=== PATIENT | female | born 1985 | race Asian ===

== ENCOUNTER 2018-12-10 07:24 | Inpatient (IN) | payer OTHER ==
[2018-12-10] MEDS ORDERED: IBUPROFEN 600 MG TAB PO PRN (11:24)
[2018-12-10] MEDS ORDERED: OLIVE OIL 118 ML BTL MISC PRN (11:24)
[2018-12-10] MEDS ORDERED: EPSOM SALT 454 GM TP PRN (11:24)
[2018-12-10] MEDS ORDERED: OXYTOCIN/RINGERS LACTATE 1,000 ML IV PRN (11:24)
[2018-12-10] MEDS ORDERED: LR 1,000 ML IV PRN (11:24)
[2018-12-10] MEDS ORDERED: LIDOCAINE 1% 300 MG/30 ML SDV SC PRN (11:24)
[2018-12-10] MEDS ORDERED: MISOPROSTOL 200 MCG TAB PR PRN (11:24)
--- NOTE | 2018-12-10 11:24 | GHP ---
[f rep st] PREOP HISTORY AND PHYSICAL DATE OF ADMISSION: 12/10/2018 ADMITTING DIAGNOSIS: Intrauterine at 39 and 0/7 weeks' gestation in early active labor. HISTORY OF PRESENT ILLNESS: The patient is a 33-year-old, 1, para 0, with a last menstrual p eriod of 03/11/2018, and an EDC of 12/17/2018, which was confirmed by an early ultrasound in [place]. She presented with active labor contractions starting at approximately 9 p.m. on the evening of the , progressed in intensity and frequency over the course of the evening. She presented in the sai y morning of the . Initial cervical exam was 2 cm, 50%, and -3, cephalic. The patient has been walking and was rechecked 2 hours after her initial exam and her exam now is 3 cm, 80%, -2. The niraj ent's contractions are active but still somewhat irregular every 3-6 minutes, mild to moderate intens ity. The patient is exhausted and wishes to have an epidural for rest and is open to augmentation of labor if needed. So I offered her expected management with more walking to develop a more active la bor pattern versus active management with an epidural, possible AROM and Pitocin. Patient is open to these interventions and she wishes to have her epidural as soon as possible. The patient has no pas t obstetrical history, this is her first . PAST GYNECOLOGICAL HISTORY: She had menarche at age 13, interval every 28 days. Length 4 days, shor t and regular, last menstrual period of 03/10/2018. She transferred to [facility] at 37+ w eeks' gestation and had her actual new OB visit yesterday, on the . Her records were in [place], but she has had no significant risk factors, normal ultrasounds in this , normal 1 hour GTT, and normal labs that we know of. Her blood type is B positive. Triple screen was low ris k. Hemoglobin and hematocrit were 11.3 and 34, GTT was normal. Hemoglobin A1c was 4.2. Other labs were not listed, they will be drawn today on admission. GBS was performed yesterday but is pending. Because she is 39 weeks with good dates and not ruptured, we will treat her by risk based protocol a nd avoid antibiotics at this point. The patient has no past medical history or past surgical history . SOCIAL HISTORY: She is . She lives with her , Ankit Trinidad. He is a labor economics professor at in chemistry and they just moved to [place] 1 week ago. She denies tobacco, alcohol, and drug us e. FAMILY HISTORY: Maternal grandfather has Alzheimer and lung cancer and that is all. PHYSICAL EXAMINATION: VITAL SIGNS: She is afebrile. Vital signs are stable. heart tones are 140s, reactive moderate variability, category 1. She is anabella every 3-6 minutes. Cervix agai n is 3, 80%, -2, cephalic and intact. ASSESSMENT/PLAN: 33-year-old, 1, para 0, at 39 and 0/7 weeks' gestation in early active labo r. The patient desires an epidural for pain control. She desires to rest and she is open for interv entions for augmentation of labor if needed. /[id number]/MODL
[2018-12-10 11:47] LABS: PLATELET COUNT 173 10^3/uL (150-400)
[2018-12-10] MEDS ORDERED: PHENYLEPHRINE HCL 100 MCG/ML SYR ONE (11:55)
[2018-12-10] MEDS ORDERED: fentaNYL 2MCG/ML/BUP 0.1% RTU 100 ML BAG EP ONE (11:55)
[2018-12-10] MEDS ORDERED: BUPIVACAINE 0.25% 10 ML SDV ONE (11:55)
[2018-12-10] MEDS ORDERED: LIDOCAINE 1% 300 MG/30 ML SDV ONE (12:33)
[2018-12-10] MEDS ORDERED: TERBUTALINE SULFATE 1 MG/ML VIAL ONE (12:34)
[2018-12-10] MEDS ORDERED: OXYTOCIN 10 UNIT/ML VIAL ONE (12:34)
[2018-12-10] MEDS ORDERED: OLIVE OIL 118 ML BTL ONE (12:34)
[2018-12-10] MEDS ORDERED: AMMONIA AROMATIC 1 EACH AMP IH ONE (12:34)
[2018-12-10] MEDS ORDERED: MISOPROSTOL 200 MCG TAB ONE (12:35)
[2018-12-10] MEDS ORDERED: ONDANSETRON 4 MG/2 ML VIAL IVP PRN (13:06)
[2018-12-10] MEDS ORDERED: PHENYLEPHRINE HCL 100 MCG/ML SYR IVP PRN (13:06)
[2018-12-10] MEDS ORDERED: NALOXONE HCL 0.4 MG/ML INJ IVP PRN (13:06)
--- NOTE | 2018-12-10 13:10 | PREANESOB ---
Obstetric Pre-Anesthesia Info - General Info Proposed Procedure: CHANTELL : 1 Para: 0 SISI: 12/17/18 Gestational Age: 39 week(s) and 0 day(s) - Info Status: Full Term FHR Pattern: Reassuring Anesthesia ROS: neg Allergies/Adverse Reactions: Allergy/AdvReac Type Severity Reaction Status Date / Time No Known Allergies Allergy Unverified 12/10/18 10:23 Visit Medications: Generic Name Dose Route Start Last Admin Trade Name Freq PRN Reason Stop Dose Admin Diphenhydramine HCl 25 - 50 mg 12/10/18 13:06 Benadryl Injection IVP 06/08/19 13:05 Q6HRS PRN Itching Lactated Ringer's 1,000 mls @ 0 mls/hr 12/10/18 11:24 12/10/18 11:30 Lr IV 12/11/18 11:23 1,000 mls PRN PRN Administration SEE PROTOCOL CONDITIONS Protocol Per Protocol Oxytocin/Lactated Ringer's 1,000 mls @ 125 mls/hr 12/10/18 11:24 Pitocin 20 Units/Lr (Premix) IV PRN PRN Post bleeding Fentanyl/Bupivacaine HCl 100 mls @ 0 mls/hr 12/10/18 13:30 Fentanyl/Bupivacaine/Ns 2 Mcg/Ml 0.1% (Premix EP 12/20/18 13:29 CONT WOOD Protocol As Directed Lactated Ringer's 500 mls @ 0 mls/hr 12/10/18 13:30 Lr IV 06/08/19 13:29 CONT WOOD As Directed Ibuprofen 600 mg 12/10/18 11:24 Motrin PO ONCE PRN post , pain Lidocaine HCl 300 mg 12/10/18 11:24 Lidocaine Hcl 1% SC 06/08/19 11:23 ONCE PRN episiotomy Magnesium Sulfate 454 gm 12/10/18 11:24 Epsom Salt TP 06/08/19 11:23 Q1H PRN perineal discomfort Misoprostol 800 - 1,000 mcg 12/10/18 11:24 Cytotec [place] ONCE PRN Vaginal Atony/Bleeding Harlan Oil 118 ml 12/10/18 11:24 Sweet Oil MISC 06/08/19 11:23 ONCE PRN perineal massage Discontinued Medications Generic Name Dose Route Start Last Admin Trade Name Freq PRN Reason Stop Dose Admin Ammonia (Aromatic Spirit) Confirm 12/10/18 12:34 Ammonia Aromatic Administered 12/10/18 12:35 Dose 1 each IH .STK-MED ONE Bupivacaine HCl Confirm 12/10/18 11:55 Sensorcaine 0.25% Sdv Administered 12/10/18 11:56 Dose 10 ml .ROUTE .STK-MED ONE Fentanyl/Bupivacaine HCl Confirm 12/10/18 11:55 Fentanyl/Bupivacaine/Ns 2 Mcg/Ml 0.1% (Premix Administered 12/10/18 11:56 Dose 100 ml EP .STK-MED ONE Lidocaine HCl Confirm 12/10/18 12:33 Lidocaine Hcl 1% Administered 12/10/18 12:34 Dose 300 mg .ROUTE .STK-MED ONE Misoprostol Confirm 12/10/18 12:35 Cytotec Administered 12/10/18 12:36 Dose 1,000 mcg .ROUTE .STK-MED ONE Harlan Oil Confirm 12/10/18 12:34 Sweet Oil Administered 12/10/18 12:35 Dose 118 ml .ROUTE .STK-MED ONE Oxytocin Confirm 12/10/18 12:34 Pitocin Administered 12/10/18 12:35 Dose 40 unit .ROUTE .STK-MED ONE Phenylephrine HCl Confirm 12/10/18 11:55 Neosynephrine Administered 12/10/18 11:56 Dose 1,000 mcg .ROUTE .STK-MED ONE Terbutaline Sulfate Confirm 12/10/18 12:34 Brethine Administered 12/10/18 12:35 Dose 1 mg .ROUTE .STK-MED ONE - Anesthesia History Response to Local Anesthetics: Normal Anesthesia & Operative History: No Prior Problems - Social History Substance Use/Abuse: Denies - Vital Signs Height/Weight (Nursing): Height 160 cm Weight 61.235 kg - Focused Exam Neck exam: FROM Mallampati Score: Class 2 Mouth exam: normal dental/mouth exam Pulmonary: no respiratory distress, clear to auscultation Cardiovascular: regular rate and rhythym Labs: 12/10/18 11:15 Patient ABO/Rh B POSITIVE 12/10/18 11:15 - Plan Consent Signed and on Chart: Yes Patient/Guardian Understands and Agrees to Plan: Yes Urgent/Emergent Case: Matilda goins completed preop but documented later for safe timely pt care General Comments: pt consented via quality improvement coordinator (rn) pt understands and wishes to proceed. Freddy
[2018-12-10] MEDS ORDERED: fentaNYL 2MCG/ML/BUP 0.1% RTU 100 ML EP SCH (13:30)
[2018-12-10] MEDS ORDERED: LR 500 ML IV SCH (13:30)
--- NOTE | 2018-12-10 13:59 | OBPROG ---
Labor Progress Note Assessment/Plan: Assessment: 33 y/o @ 39 0/7 weeks in early labor. Plan: Thick meconium with AROM now. I used the science interpreter to explain the significance of the meconium, the protocol for NRP if needed and dictated by how the baby behaves at . We have notified the PEARL DIGGER, who will be present for delivery. I emphasized that this does not signify signs of distress, and that the baby overall is very reassuring and has a Category I tracing. I answered all questions and they verbalized understanding through the science interpreter and directly to me. Good cervical progress, will recheck 2 hours. 12/10/18 13:59 Subjective/Intrapartum Course: 12/10/18 13:56 Pt is comfortable with her epidural. She has rested comfortably since placement. Objective: 12/10/18 11:15 Patient ABO/Rh B POSITIVE 12/10/18 11:15 - SVE Dilation (cm): 4 Effacement (%): 80 Station: -2 Membranes: AROM Amniotic Fluid Color: Thick Meconium - Contraction Pattern Assessment Current Contraction Pattern: Regular (Q 3-5) - FHR Assessment Dominguez FHR (bpm): 140 FHR Pattern Variability: Moderate FHR Category: 1 - Procedures Non-surgical Procedures: Amniotomy - AP Antepartum Course: 12/10/18 13:59 Late transfer of care from [place] @ 37 4/7 weeks GBS unknown Oxytocin Orders Assessment - Pre-Induction/Augmentation Assessment Gestational Age: 39 week(s) and 0 day(s) ICD10 Worksheet Patient Problems: Problems Problem Status Onset Normal labor Acute - ICD10 Problem Qualifiers (1) Normal labor
[2018-12-10] MEDS ORDERED: AMPICILLIN SODIUM 2 GM in NS 100 ML IV ONE (15:24)
[2018-12-10] MEDS ORDERED: ACETAMINOPHEN 500 MG TAB PO ONE (15:45)
[2018-12-10] MEDS: GENTAMICIN 80 MG/NACL 100 ML IV SCH ×2 (15:48→23:40)
--- NOTE | 2018-12-10 16:25 | OBPROG ---
Labor Progress Note Assessment/Plan: Assessment: 33 y/o @ 39 0/7 weeks in early labor. Maternal temperature in labor Plan: T max 100.5 in labor. We started Ampicillin and Gentamycin and gave PO Tylenol. Fever is down now. GBS culture returned as negative from yesterday. She is anabella regularly on her own and status is reassuring, with good cervical progress. Will re check 2 hours. 12/10/18 13:59 12/10/18 16:23 Subjective/Intrapartum Course: 12/10/18 13:56 Pt is comfortable with her epidural. She has rested comfortably since placement. 12/10/18 16:23 Pt is comfortable, she reports feeling weak and tired. Her fever is down now. Objective: 12/10/18 11:15 Patient ABO/Rh B POSITIVE 12/10/18 11:15 - SVE Dilation (cm): 6 Effacement (%): 90 Station: 0 Membranes: AROM Amniotic Fluid Color: Thick Meconium - Contraction Pattern Assessment Current Contraction Pattern: Regular (Q 3-5) - Procedures Non-surgical Procedures: Amniotomy - AP Antepartum Course: 12/10/18 13:59 Late transfer of care from [place] @ 37 4/7 weeks GBS unknown Oxytocin Orders Assessment - Pre-Induction/Augmentation Assessment Gestational Age: 39 week(s) and 0 day(s) ICD10 Worksheet Patient Problems: Problems Problem Status Onset Normal labor Acute - ICD10 Problem Qualifiers (1) Normal labor
[2018-12-10] MEDS ORDERED: LR 500 ML IV PRN (19:18)
--- NOTE | 2018-12-10 19:18 | OBPROG ---
Labor Progress Note Assessment/Plan: Assessment: 33 y/o @ 39 0/7 weeks in early labor. Maternal temperature in labor Plan: Pt is stable now, afebrile on Amp and Gent. She is having good contractions and good cervical change. Will re check 2 hours, will augment contractions with pitocin if needed. 12/10/18 13:59 12/10/18 16:23 12/10/18 19:14 Subjective/Intrapartum Course: 12/10/18 13:56 Pt is comfortable with her epidural. She has rested comfortably since placement. 12/10/18 16:23 Pt is comfortable, she reports feeling weak and tired. Her fever is down now. 12/10/18 19:11 Pt is comfortable with her epidural. She reports some nausea and acid reflux, but declines meds now. Objective: 12/10/18 11:15 Patient ABO/Rh B POSITIVE 12/10/18 11:15 - SVE Dilation (cm): 8 Effacement (%): 90 Station: 0 Membranes: AROM Amniotic Fluid Color: Thick Meconium - Contraction Pattern Assessment Current Contraction Pattern: Regular (Q 2-3) - FHR Assessment Dominguez FHR (bpm): 140 FHR Pattern Variability: Moderate FHR Category: 1 - Procedures Non-surgical Procedures: Amniotomy - AP Antepartum Course: 12/10/18 13:59 Late transfer of care from [facility] @ 37 4/7 weeks GBS unknown Oxytocin Orders Assessment - Pre-Induction/Augmentation Assessment Gestational Age: 39 week(s) and 0 day(s) ICD10 Worksheet Patient Problems: Problems Problem Status Onset Normal labor Acute - ICD10 Problem Qualifiers (1) Normal labor
[2018-12-10] MEDS ORDERED: OXYTOCIN/RINGERS LACTATE 500 ML IV SCH (19:30)
[2018-12-10] MEDS: AMPICILLIN SODIUM 1 GM in NS 100 ML IV SCH (20:41)
[2018-12-10] MEDS: ACETAMINOPHEN 500 MG TAB PO PRN (21:50)
--- NOTE | 2018-12-10 22:10 | OBPROG ---
Labor Progress Note Assessment/Plan: Assessment: 33 y/o @ 39 0/7 weeks in early labor. Maternal temperature in labor Plan: Pt has developed tachycardia and baby's baseline has increased to the 160-170. Her last temperature was 101.3. She just received her 2nd dose of Tylenol. We will let her rest for 30 minutes and then try pushing again. She had good pushing efforts, but I could still palpate an anterior cervical lip. She can push the head past it. I suspect OP presentation. Overall status is reassuring and she has made good progress. I notified [facility] of Chorioamnionitis and she will assess the baby at delivery. 12/10/18 13:59 12/10/18 16:23 12/10/18 19:14 12/10/18 22:10 Subjective/Intrapartum Course: 12/10/18 13:56 Pt is comfortable with her epidural. She has rested comfortably since placement. 12/10/18 16:23 Pt is comfortable, she reports feeling weak and tired. Her fever is down now. 12/10/18 19:11 Pt is comfortable with her epidural. She reports some nausea and acid reflux, but declines meds now. 12/10/18 22:07 Pt is feeling pelvic pressure and the urge to have a BM. We tried to push for approximately 30 minutes. She has good effort, but is feeling very fatigued. We decided to rest for 30 minutes and then try again. Objective: 12/10/18 11:15 Patient ABO/Rh B POSITIVE 12/10/18 11:15 - SVE Dilation (cm): 10 Effacement (%): 100 Station: +2 Membranes: AROM Amniotic Fluid Color: Thick Meconium - Contraction Pattern Assessment Current Contraction Pattern: Regular (Q 2-3) - FHR Assessment Dominguez FHR (bpm): 160 FHR Pattern Variability: Moderate FHR Category: 1 - Procedures Non-surgical Procedures: Amniotomy - AP Antepartum Course: 12/10/18 13:59 Late transfer of care from [place] @ 37 4/7 weeks GBS unknown Oxytocin Orders Assessment - Pre-Induction/Augmentation Assessment Gestational Age: 39 week(s) and 0 day(s) ICD10 Worksheet Patient Problems: Problems Problem Status Onset Normal labor Acute - ICD10 Problem Qualifiers (1) Normal labor
[2018-12-11] MEDS ORDERED: SIMETHICONE 80 MG TAB CHEW PO PRN (00:27)
[2018-12-11] MEDS ORDERED: oxyCODONE IR 5 MG TAB PO PRN (00:27)
[2018-12-11] MEDS ORDERED: ACETAMINOPHEN 325 MG TAB PO PRN (00:27)
[2018-12-11] MEDS ORDERED: HYDROCORTISONE 0.5% CREAM TP PRN (00:27)
--- NOTE | 2018-12-11 00:34 | OBDEL ---
Info Type: Vaginal Presentation at Delivery: Vertex L&D Analgesia/Anesthesia Type: Epidural GBS+: No Intrapartum Medications: Generic Name Dose Route Start Last Admin Trade Name Evelyn PRN Reason Stop Dose Admin Acetaminophen 1,000 mg 12/10/18 21:36 12/10/18 21:50 Tylenol PO 06/08/19 21:35 1,000 mg Q6HRS PRN Administration Pain, Mild/Fever, Can Take PO Lactated Ringer's 1,000 mls @ 0 mls/hr 12/10/18 11:24 12/10/18 11:30 Lr IV 12/11/18 11:23 1,000 mls PRN PRN Administration SEE PROTOCOL CONDITIONS Protocol Per Protocol Fentanyl/Bupivacaine HCl 100 mls @ 0 mls/hr 12/10/18 13:30 12/10/18 19:22 Fentanyl/Bupivacaine/Ns 2 Mcg/Ml 0.1% (Premix EP 12/20/18 13:29 100 mls CONT WOOD Administration Protocol As Directed Ampicillin Sodium 1 gm/ Sodium 100 mls @ 200 mls/hr 12/10/18 19:30 12/10/18 20:41 Chloride IV 01/09/19 19:29 100 mls Q4H WOOD Administration Protocol Gentamicin Sulfate/Sodium Chloride 100 mls @ 100 mls/hr 12/10/18 15:30 23:40 Gentamicin 80 Mg (Premix) IV 01/09/19 15:29 100 mls Q8H WOOD Administration Protocol Oxytocin/Lactated Ringer's 500 mls @ 0 mls/hr 12/10/18 19:30 12/10/18 19:44 Pitocin 30 Units/Lr (Premix) IV 06/08/19 19:29 500 mls CONT WOOD Administration Protocol Per Protocol Discontinued Medications Generic Name Dose Route Start Last Admin Trade Name Evelyn PRN Reason Stop Dose Admin Acetaminophen 1,000 mg 12/10/18 15:45 12/10/18 15:47 Tylenol PO 12/10/18 15:46 1,000 mg ONCE ONE Administration Ampicillin Sodium 2 gm/ Sodium 110 mls @ 220 mls/hr 12/10/18 15:24 12/10/18 16:49 Chloride IV 12/10/18 15:53 110 mls ONCE ONE Administration Protocol - Care Provider Cutting Machine Tender/TRACTOR OPERATOR HELPER: Mary Jane - Hospital Course Intrapartum: 12/10/18 13:56 Pt is comfortable with her epidural. She has rested comfortably since placement. 12/10/18 16:23 Pt is comfortable, she reports feeling weak and tired. Her fever is down now. 12/10/18 19:11 Pt is comfortable with her epidural. She reports some nausea and acid reflux, but declines meds now. 12/10/18 22:07 Pt is feeling pelvic pressure and the urge to have a BM. We tried to push for approximately 30 minutes. She has good effort, but is feeling very fatigued. We decided to rest for 30 minutes and then try again. Indications for Delivery: Spontaneous Labor Vaginal Delivery - Delivery Provider Delivery Physician/CNM: Mary Mane - Labor and Delivery Onset of Contractions Date: 12/09/18 Onset of Contractions Time: 21:00 Onset of Contractions Type: Augmented Rupture of Membranes Date: 12/10/18 Rupture of Membranes Time: 13:44 Rupture of Membranes Type: Artificial Amniotic Fluid Color: Thick Meconium Dilation Complete Date: 12/10/18 Dilation Complete Time: 21:45 Placenta Delivery Date: 12/11/18 Placenta Delivery Time: 00:04 Total Hours of Labor: 27 Non-surgical Procedures: Amniotomy Laceration: 2nd Degree, Other (Specify) (right vaginal sulcus) Repair: 2-0, 4-0 Vaginal Sponge Count Correct: Yes Vaginal Needle Count Correct: Yes Vaginal Sweep Performed: Yes EBL: 400 Delivery Events: Other (Specify) (chorioamnionitis) Cord Gases: Cord Gases Cord Blood PCO2 49 mmHg (37-60) 12/11/18 00:00 Cord Base Excess -4.8 mEq/L (-13.6--3.2) 12/11/18 00:00 Cord ABG pH 7.28 (7.10-7.37) 12/11/18 00:00 Cord VBG pH 7.30 (7.20-7.42) 12/11/18 00:00 - Medications Labor Augmentation/Induction Methods Used: Pitocin Labor Augmentation/Induction Indication: Inadequate Contraction Frequency, Inadequate Contraction Strength Operative Report - Delivery Cord Gases: Cord Gases Cord Blood PCO2 49 mmHg (37-60) 12/11/18 00:00 Cord Base Excess -4.8 mEq/L (-13.6--3.2) 12/11/18 00:00 Cord ABG pH 7.28 (7.10-7.37) 12/11/18 00:00 Cord VBG pH 7.30 (7.20-7.42) 12/11/18 00:00 Makinen Data SISI: 12/17/18 Gestational Age: 39 week(s) and 1 day(s) Dominguez Delivery Date: 12/11/18 Delivery Time: 00:00 Sex of : Male Score (1 Min): 8 Score (5 Min): 9 ICD10 Worksheet Patient Problems: Problems Problem Status Onset Chorioamnionitis Acute Normal labor Acute (spontaneous vaginal delivery) Acute - ICD10 Problem Qualifiers (1) Normal labor (2) Chorioamnionitis Qualifiers: Fetus number: single or unspecified fetus (3) (spontaneous vaginal delivery)
[2018-12-11] MEDS: ACETAMINOPHEN 500 MG TAB PO PRN (06:50)
[2018-12-11] MEDS: DOCUSATE SODIUM 100 MG CAP PO PRN (06:53)
[2018-12-11] MEDS: IBUPROFEN 600 MG TAB PO PRN ×2 (06:53→17:48)
--- NOTE | 2018-12-11 11:47 | OBPP ---
Progress Note Assessment/Plan: Assessment: 33 yo G1 now P1, PPD1 (delivered at midnight last night) s/p . Labor complicated by dx of chorioamnionitis - started on Amp and Gent IV during labor , thick mec during labor as well. Routine cares. Chorio: Afebrile, no further abx needed. Rh pos, Rubella immune. JM Subjective/ Course: Doing well, pain controlled. BF going well. Objective: 12/11/18 05:45 Patient ABO/Rh B POSITIVE 12/10/18 11:15 Temp Pulse Resp BP Pulse Ox 36.6 C 83 16 79/58 L 97 12/11/18 05:30 12/11/18 05:30 12/11/18 05:30 12/11/18 05:30 12/11/18 05:30 Uterine Position/Fundal Height: At Umbilicus Uterine Tone: Firm
--- NOTE | 2018-12-11 13:14 | POSTANESTH ---
Post Anesthetic Evaluation Cardiovascular Status: Normal, Stable, Similar to Pre-Op Cond Respiratory Status: Normal, Stable, Similar to Pre-op Cond. Level of Consciousness/Mental Status: Can Participate in Eval, Alert and Oriented Pain Control: Adequate, Prn Tx Ordered Nausea/Vomiting Control: Adequate, Prn Tx Ordered Complications Possibly Related to Anesthesia: None Noted Notes: Pt seen and examined. No apparent ill effects from labor epidural. Back site c /d/i, no e/e/e. ABle to ambulate.
[2018-12-11] MEDS: AMPICILLIN SODIUM 1 GM in NS 100 ML IV SCH (21:39)
[2018-12-11] MEDS: FERRO-SEQUELS 65 MG TAB.ER PO SCH (21:55)
[2018-12-12] MEDS: ACETAMINOPHEN 500 MG TAB PO PRN (00:57)
[2018-12-12] MEDS: IBUPROFEN 600 MG TAB PO PRN (00:57)
[2018-12-12] MEDS: DOCUSATE SODIUM 100 MG CAP PO PRN (11:40)
[2018-12-12] MEDS: FERRO-SEQUELS 65 MG TAB.ER PO SCH (11:40)
--- NOTE | 2018-12-12 12:10 | OBPP ---
Progress Note Assessment/Plan: Assessment: 1) s/p PPD #2 - pt is stable 2) Chorioamnionitis during labor - started on Amp and Gent IV during labor 3) Anemia - pt is asymptomatic Plan: Pt wants to go home later today Pt is afebrile Plan for d/c home later today if baby boy is discharged Instructions reviewed with pt Rx given for Motrin Cont PNV, iron and colace Pelvic rest and lifting restrictions given RTO in 4 weeks for a mood check and 6 weeks for a pp visit 12/12/18 12:10 Subjective/ Course: Doing well, pain controlled. BF going well. 12/12/18 12:13 Pt seen and examined. Doing well with no complaints. She is having swelling down below. Mild cramping. Mod lochia. She is OOB, tracey regular diet, voiding without difficulty, passing flatus. No BM yet. BF is going well so far per pt. Brand Engineer used in Mandarin. Objective: 12/11/18 05:45 Patient ABO/Rh B POSITIVE 12/10/18 11:15 Temp Pulse Resp BP Pulse Ox 36.6 C 76 16 71/42 L 94 12/12/18 08:30 12/12/18 08:30 12/12/18 08:30 12/12/18 08:30 12/12/18 08:30 Uterine Position/Fundal Height: Umbilicus -2 Uterine Tone: Firm Physical Exam - Physical Exam General Appearance: alert, no apparent distress, mild distress Respiratory: lungs clear, normal breath sounds Cardiac/Chest: regular rate, rhythm Abdomen: normal bowel sounds, non-tender, soft, flatus (+) Extremities: non-tender, normal inspection Skin: normal color, warm/dry Neuro/Psych: alert, normal mood/affect, oriented x 3
--- NOTE | 2018-12-12 13:04 | OBGCSDC ---
General Delivery Information - General Info : 1 Para: 1 Abortions: 0 Type: Vaginal L&D Analgesia/Anesthesia Type: Epidural Admission Date: 12/10/18 Labs: Patient ABO/Rh B POSITIVE 12/10/18 11:15 Hct 28.1 % (38.0-47.0) L 12/11/18 05:45 - Hospital Course Antepartum: 12/10/18 13:59 Late transfer of care from [place] @ 37 4/7 weeks GBS unknown Intrapartum: 12/10/18 13:56 Pt is comfortable with her epidural. She has rested comfortably since placement. 12/10/18 16:23 Pt is comfortable, she reports feeling weak and tired. Her fever is down now. 12/10/18 19:11 Pt is comfortable with her epidural. She reports some nausea and acid reflux, but declines meds now. 12/10/18 22:07 Pt is feeling pelvic pressure and the urge to have a BM. We tried to push for approximately 30 minutes. She has good effort, but is feeling very fatigued. We decided to rest for 30 minutes and then try again. : Doing well, pain controlled. BF going well. 12/12/18 12:13 Pt seen and examined. Doing well with no complaints. She is having swelling down below. Mild cramping. Mod lochia. She is OOB, tracey regular diet, voiding without difficulty, passing flatus. No BM yet. BF is going well so far per pt. Upper Cutter Machine used in Mandarin. Vaginal - Delivery Provider Delivery Physician/CNM: Mary Mane - Diagnosis Labor: Augmented Rupture of Membranes Type: Artificial Amniotic Fluid Color: Thick Meconium Laceration: 2nd Degree, Other (Specify) (right vaginal sulcus) Repair: 2-0, 4-0 Delivery Events: Other (Specify) (chorioamnionitis) - Procedures Non-surgical Procedures: Amniotomy - Delivery Non-surgical Procedures: Amniotomy EBL: 400 Data SISI: 12/17/18 Gestational Age: 39 week(s) and 2 day(s) Dominguez Delivery Date: 12/11/18 Delivery Time: 00:00 Sex of Infant: Male Weight (gm): 3575 g Score (1 Min): 8 Score (5 Min): 9 Discharge Information - Discharge Information Instruction/Follow Up: Four Weeks, Six Weeks
[2018-12-12 13:17] VITALS: BP 91/64
== END 2018-12-12 20:21 | disposition home or self-care (01) | DRG 805 ==
LOC: OBSVTOIN 07:24 → FLD 07:24 → FOB 12-11 02:56 → FLD 12-11 02:58 → FOB 12-11 02:59
PROVIDERS: ADMIT Obstetrics & Gynecology; ATTEND Obstetrics & Gynecology
DX: O70.1 Second degree perineal laceration during delivery (principal); O77.0 Labor and delivery complicated by meconium in amniotic fluid; O41.1230 Chorioamnionitis, third trimester, not applicable or unspecified; O75.81 Maternal exhaustion complicating labor and delivery; O09.33 Supervision of pregnancy with insufficient antenatal care, third trimester; O99.013 Anemia complicating pregnancy, third trimester; Z3A.39 39 weeks gestation of pregnancy; Z37.0 Single live birth
CPT/HCPCS: J0290; J1580; J2370; J2590; J3105